=== PATIENT | male | born 1975 | race Caucasian/White ===

== ENCOUNTER 2017-02-11 09:39 | Day surgery (SDC) | payer OTHER ==
[~2017-02-11] VITALS: Ht 182.9 cm; Wt 106.6 kg
[2017-02-11 10:00] VITALS: BP 117/67
[2017-02-11 13:56] VITALS: BP 107/70
== END 2017-02-11 12:45 | disposition home or self-care (01) ==
LOC: DS 09:39 → OR 12:30 → GI 12:30 → DS 12:45
PROVIDERS: Internal Medicine Gastroenterology
PROC: 0DBN8ZZ Excision of Sigmoid Colon, Via Natural or Artificial Opening Endoscopic (ICD-10-PCS; principal; 2017-02-11 12:30)
PROC: 0DBH8ZZ Excision of Cecum, Via Natural or Artificial Opening Endoscopic (ICD-10-PCS; 2017-02-11 12:30)
DX: Z12.11 Encounter for screening for malignant neoplasm of colon (principal); D12.0 Benign neoplasm of cecum; D12.5 Benign neoplasm of sigmoid colon; Z80.0 Family history of malignant neoplasm of digestive organs
CPT/HCPCS: 45378; J1200; J1610; J2250; J2310; J3010; J3490